=== PATIENT | male | born 1980 | race Caucasian/White ===

== ENCOUNTER 2016-11-10 23:01 | Emergency (ER) | payer OTHER ==
[~2016-11-10] VITALS: Ht 177.8 cm; Wt 72.0 kg
[~2016-11-10 23:01] MED LIST: AMPH10CA3 PO; AMPH30CA3 PO; CIPR-255 PO; PROP10TA7 PO
[2016-11-10 23:05] VITALS: TEMP 36.6; Ht 177.8 cm; Wt 72.0 kg
[2016-11-10 23:41] VITALS: O2SAT 98
[2016-11-11 00:13] LABS: BASO % 0.1 %; BASO ABS # 0.01 K/uL (0-0.2); COMPLETE YES; EOS % 1.3 %; HEMATOCRIT 44.6 % (42-52); IG% 0.1 %; LYMPH % 28.9 %; LYMPH ABS # 2.08 K/uL (1.2-3.4); MEAN CELL VOLUME 83.7 fL (80-100); MEAN CORPUSCULAR HEMOGLOBIN 29.5 pg (25-34); MEAN CORPUSCULAR HGB CONC 35.2 g/dl (32-36); MEAN PLATELET VOLUME 9.7 fL (7.4-10.4); MONO % 5.7 %; NEUT % 63.9 %; PLATELET COUNT 352 K/uL (130-400); RED BLOOD COUNT 5.33 M/uL (4.7-6.1)
[2016-11-11 00:29] LABS: PARTIAL THROMBOPLASTIN RATIO 1.1; PROTHROMBIN TIME (PATIENT) 10.4 SECONDS (9.0-12.0)
[2016-11-11 00:31] LABS: ALT/SGPT 29 U/L (12-78); AST/SGOT 13 U/L (15-37); BLOOD UREA NITROGEN 10 mg/dl (7-18); BUN/CREATININE RATIO 10.3 (10-20); CALCIUM 9.4 mg/dl (8.5-10.1); CARBON DIOXIDE 31 mmol/L (21-32); CHLORIDE 102 mmol/L (98-107); CREATININE 0.94 mg/dl (0.60-1.40); GLUCOSE 127 mg/dl (70-99); POTASSIUM 3.7 mmol/L (3.5-5.1); SODIUM 140 mmol/L (136-145)
[2016-11-11 00:35] LABS: ALKALINE PHOSPHATASE 130 U/L (45-117)
[2016-11-11] MEDS ORDERED: OPTIRAY 320 IV PRN (01:15)
[2016-11-11 02:29] VITALS: BP 106/62; PULSE 72; O2SAT 99
--- NOTE | 2016-11-11 02:32 | EMERGENCY ROOM VISIT NOTE ---
History First contact with patient: 23:11 Chief Complaint: SHORTNESS OF BREATH Stated Complaint: FATIGUE,SOB,CHILLS AFTER SURGERY Nursing Triage Summary: c/o sob since this am denies pain states " i have chills." History of Present Illness The patient is a 35 year old male who presents to the Emergency Room with complaints of chills and feeling short of breath for the past day with feeling fatigued. Patient had facial reconstructive surgery on October 30 in [place] for prior facial fractures when he was a child. He also had orbital reconstruction as he had diplopia. Patient has 3 implants on the right side of his face and 2 on the left. Patient states he had his follow-up appointment last with Dr. Oro and things are going well. He was placed on a eye ointment and has been on Keflex since the surgery. He states his vision is improving. Patient complains of some discomfort behind his right orbit. Patient does use tobacco products. Patient does suffer from anxiety with possible bipolar and ADHD. Patient has been taking his hydrocodone for his pain as scheduled. Patient states he came in now as he felt more fatigued and short of breath. Patient denies coughing, chest pain, documented fever, sore throat, loss of vision, hearing problems, sore throat, dysphagia, abdominal pain , vomiting, diarrhea, urinary symptoms. Patient states he was feeling well until today. No history DVT or PE. His next follow-up appointment is in November. Review of Systems See HPI for pertinent positives & negatives. A total of 10 systems reviewed and were otherwise negative. Past Medical/Surgical History Medical Problems: (1) ADHD (attention deficit hyperactivity disorder) Social History Smoking Status: Current Every Day Smoker Drug Use: none Occupation Status: [employer] student Current/Historical Medications Scheduled Amphetamine-Dextroamphetamine 10MG (Adderall Xr 10MG), 10 MG PO QPM Amphetamine-Dextroamphetamine 30MG (Adderall Xr 30MG), 30 MG PO QAM Scheduled PRN Propranolol (Inderal), 10 MG PO DAILY PRN for TREMORS Physical Exam Vital Signs Date Time Temp Pulse Resp B/P (MAP) Pulse Ox O2 Delivery O2 Flow Rate FiO2 11/11/16 01:32 85 18 111/78 96 Room Air 11/11/16 00:57 78 18 118/70 99 Room Air 11/10/16 23:42 93 11/10/16 23:42 106 18 117/88 98 Room Air 11/10/16 23:41 98 Room Air 11/10/16 23:05 36.6 87 18 110/74 97 Room Air Physical Exam VITALS: Vitals are noted on the nurse's note and reviewed by myself. Vital signs stable. GENERAL: Pleasant male anxious-appearing, in no acute distress, nondiaphoretic, well-developed well-nourished. SKIN: The skin was without rashes, erythema, edema, or bruising. There is no tenting of the skin. Capillary reflex less than 2 seconds. HEAD: Normocephalic atraumatic. Face: Minimal tender to palpation and bilateral orbits improving per patient. EARS: External auditory canals clear, tympanic membranes pearly ochoa without erythema or effusion bilaterally. EYES: Pupils equal round and reactive to light and accommodation. Bilateral chemosis present improving per patient Conjunctivae without injection, sclerae without icterus. Extraocular movements intact. NOSE: Patent, turbinates without inflammation or discharge. No sinus tenderness. MOUTH: Mucous membranes moist. Upper buccal mucosa suture lines intact without signs of infection Pharynx without erythema or exudate. Uvula midline. Airway patent. Tongue does not deviate. NECK: Supple without nuchal rigidity. No lymphadenopathy. No thyromegaly. Cervical spine is nontender. No JVD. No meningeal signs HEART: Regular rate and rhythm without murmurs gallops or rubs. LUNGS: Clear to auscultation bilaterally without wheezes, rales or rhonchi. No dullness to percussion. No retractions or accessory muscle use. ABDOMEN: Positive bowel sounds x 4. Normal tympanic percussion. Soft, nontender, without masses or organomegaly. Malone sign negative. No guarding or rebound tenderness. MUSCULOSKELETAL: No muscle atrophy, erythema, or edema noted. NEURO: Patient was alert and oriented to person place and time. Normal sensation to light and sharp touch. No focal neurological deficits. Medical Decision & Procedures Laboratory Results 11/10/16 23:40 Red Blood Count 5.33, Mean Corpuscular Volume 83.7, Mean Corpuscular Hemoglobin 29.5, Mean Corpuscular Hemoglobin Concent 35.2, Mean Platelet Volume 9.7, Neutrophils (%) (Auto) 63.9, Lymphocytes (%) (Auto) 28.9, Monocytes (%) (Auto) 5.7, Eosinophils (%) (Auto) 1.3, Basophils (%) (Auto) 0.1, Neutrophils # (Auto) 4.60, Lymphocytes # (Auto) 2.08, Monocytes # (Auto) 0.41, Eosinophils # (Auto) 0.09, Basophils # (Auto) 0.01 11/10/16 23:40 Test 11/10/16 23:40 11/10/16 23:55 White Blood Count 7.20 K/uL (4.8-10.8) Red Blood Count 5.33 M/uL (4.7-6.1) Hemoglobin 15.7 g/dL (14.0-18.0) Hematocrit 44.6 % (42-52) Mean Corpuscular Volume 83.7 fL (80-100) Mean Corpuscular Hemoglobin 29.5 pg (25-34) Mean Corpuscular Hemoglobin Concent 35.2 g/dl (32-36) Platelet Count 352 K/uL (130-400) Mean Platelet Volume 9.7 fL (7.4-10.4) Neutrophils (%) (Auto) 63.9 % Lymphocytes (%) (Auto) 28.9 % Monocytes (%) (Auto) 5.7 % Eosinophils (%) (Auto) 1.3 % Basophils (%) (Auto) 0.1 % Neutrophils # (Auto) 4.60 K/uL (1.4-6.5) Lymphocytes # (Auto) 2.08 K/uL (1.2-3.4) Monocytes # (Auto) 0.41 K/uL (0.11-0.59) Eosinophils # (Auto) 0.09 K/uL (0-0.5) Basophils # (Auto) 0.01 K/uL (0-0.2) RDW Standard Deviation 38.2 fL (36.4-46.3) RDW Coefficient of Variation 12.7 % (11.5-14.5) Immature Granulocyte % (Auto) 0.1 % Immature Granulocyte # (Auto) 0.01 K/uL (0.00-0.02) Prothrombin Time 10.4 SECONDS (9.0-12.0) Prothromb Time International Ratio 1.0 (0.9-1.1) Activated Partial Thromboplast Time 27.3 SECONDS (21.0-31.0) Partial Thromboplastin Ratio 1.1 D-Dimer 500 ug/L FEU (0-500) Anion Gap 7.0 mmol/L (3-11) Est Creatinine Clear Calc Drug Dose 113.8 ml/min Estimated GFR () 123.0 Estimated GFR (Non- 106.1 BUN/Creatinine Ratio 10.3 (10-20) Calcium Level 9.4 mg/dl (8.5-10.1) Total Bilirubin 0.6 mg/dl (0.2-1) Aspartate Amino Transf (AST/SGOT) 13 U/L (15-37) Alanine Aminotransferase (ALT/SGPT) 29 U/L (12-78) Alkaline Phosphatase 130 U/L (45-117) Troponin I < 0.015 ng/ml (0-0.045) Total Protein 8.1 gm/dl (6.4-8.2) Albumin 4.0 gm/dl (3.4-5.0) Globulin 4.1 gm/dl (2.5-4.0) Albumin/Globulin Ratio 1.0 (0.9-2) Bedside Lactic Acid Venous 0.93 mmol/L (0.90-1.70) ED Course Prior records/ancillary studies reviewed. Triage Nursing notes reviewed. The patient's history was concerning for respiratory difficulties with recent surgery. Differential diagnosis: Etiologies such as postsurgical complication, anxiety, infections, reactive airway disease, pneumonia, pneumothorax, COPD, CHF, cardiac ischemia, pulmonary embolism, musculoskeletal, gastrointestinal, as well as others were entertained. Physical examination: As above. ER treatment provided: Patient was observed On reassessment the patient felt better. Diagnostic interpretation by me: The electrocardiogram was normal sinus, normal intervals, rate of 109, no acute ST-T wave changes. Impression sinus tachycardia interpreted by myself. The labs revealed negative lactic acid d-dimer. Stable H&H. No leukocytosis Imaging studies: Chest x-ray with no acute consolidation, pneumothorax or free air per my interpretation. CT FACIAL: No prior exams. Mottled low attenuation surgical material vs. collections in the bilateral malar region. Correlate with surgical history. Collection of air on the left side surrounding the above mentioned material. Much smaller foci of air on the contralateral side. Infection should be considered. Mottled collections of air and fluid near the mandibular regions. Correlate for abscesses. Soft tissue swelling, inflammation and infiltration in the face. Fixation hardware related to the orbits and the maxilla. Sinus mucosal thickening/debris. Soft tissue thickening in the orbits, greater on the right side. Facial fractures. Cervical nodes. Radiologist: Lauren Desai M.D. Consultation: A consultation was placed with the ENT crop pest control specialist at [facility], Dr Neumann. The case was discussed and diagnostics were reviewed. He states this does not appear to be any type of serious complication. He states he will not be able to review the CT results as he will not come into the hospital to review them. He recommends the patient call the clinic in the morning for follow up with his surgeon. The transfer center did call back and states that they will report the ENT doctor for being inappropriate on the phone for yelling and being condescending. He was extremely upset that it did wake him up in the middle night to review the CT results. He made it clear that he would not come in to review the results. He also stated that he cannot see the patient and by review of the testing it does not sound like it is anything emergent in which I should have called him for in the middle of the night. My attending was made aware this. This appears to be consistent with postsurgical pain without clear indication of abscess. Patient was advised to call the clinic in the morning for follow- up within next 48 hours. Patient was neurovascularly and neurologically intact. He is well-appearing. Negative d-dimer. I feel like it is less likely the patient has a PE. Negative troponin. No acute findings and EKG. patient had stable vital signs. He was advised to return to the ER me for chest pain, difficulty breathing, fevers, vision problems, worsening signs or symptoms or as needed. By the evaluation outlined above emergent etiologies such as CHF, cardiac ischemia, pulmonary embolism, reactive airway disease, pneumonia, pneumothorax, musculoskeletal, serious bacterial infections, as well as others were deemed relatively unlikely. The pt informed about the findings as listed above. All questions were answered and pleased with the treatment. Return instructions were outlined and the patient was discharged in stable condition. Referral: The patient was referred back to their ENT for follow-up in 2 to 3 days for a recheck of the current condition. Case reviewed with my attending. Medical Decision As above Medication Reconcilliation Current Medication List: was personally reviewed by me Blood Pressure Screening Patient's blood pressure: Normal blood pressure Impression Primary Impression: Postoperative pain Additional Impressions: Facial pain Dyspnea Departure Information Dispostion Home / Self-Care Condition GOOD Referrals No Doctor, Assigned (PCP) Patient Instructions My [facility] Additional Instructions Ibuprofen(Motrin, Advil) may be used for fever or pain. Use 600mg every six hours as needed. Take with food. Avoid using more than 2400mg in a 24 hour period. Do not use 2400mg per day for more than three consecutive days without physician direction. Prolonged inappropriate use can lead to stomach upset or ulcers. (AND/OR) Acetaminophen(Tylenol) may be used for fever or pain. Use 1000mg every six hours as needed. Avoid using more than 3000mg in a 24 hour period. Rest and drink plenty of fluids as tolerated. Continue current medications. Return to the ER immediately for worsening or persistent facial pain, vision problems, abdominal pain, vomiting, fevers, chest pains, difficulty breathing, worsening of your condition, or as needed. Follow up with your ENT in 2-3 days, call today for a follow-up appointment for a recheck of your current condition. Problem Qualifiers
--- NOTE | 2016-11-11 07:11 | DIAGNOSTIC IMAGING REPORT ---
SINGLE VIEW CHEST CLINICAL HISTORY: Dyspnea. Chills. FINDINGS: An AP, portable, upright chest radiograph is obtained. No prior studies are available for comparison at the time of dictation. The examination is degraded by portable technique and patient rotation. The cardiomediastinal silhouette is unremarkable. The lungs and pleural spaces are clear. No pneumothorax is seen. The bony thorax is grossly intact. IMPRESSION: No active disease in the chest. Electronically signed by: Chi Casey M.D. 11/11/2016 7:10 AM Dictated Date/Time: 11/11/2016 7:09 AM
--- NOTE | 2016-11-11 07:25 | DIAGNOSTIC IMAGING REPORT ---
FACIAL-MAXILLOFACIAL WITH CLINICAL HISTORY: 35 years-old Male presenting with right orbtail pain, recent facial reconstrucitve OR. TECHNIQUE: Multidetector CT of the face was performed after the administration of intravenous contrast. IV contrast: 119 mL of Optiray 320. A dose lowering technique was used consistent with the principles of ALARA (as low as reasonably achievable). COMPARISON: None. CT DOSE (mGy.cm): The estimated cumulative dose is 664.28 mGy.cm. FINDINGS: Stitching Machine Setter topogram: Unremarkable. Postsurgical changes of screw fixation of the bilateral inferior and lateral rims of the orbits. None of the screws appear flush with the cortex, which may possibly indicate loosening or suboptimal positioning. Mesh along the right orbital floor in place. Additional surgical material more inferiorly along the maxilla bilaterally, including 2 anterior screws that have completely or near completely backed out of the maxilla. Extensive fluid and gas along the premaxillary regions with peripheral rim enhancement. The degree of gas and fluid is unexpected in the postsurgical setting. The collections do not appear to extend into the orbits. However, preseptal periorbital edema is noted. Mucosal thickening of the right maxillary sinus. Otherwise the paranasal sinuses and mastoid air cells are clear. Postsurgical change of right maxillary antrostomy. No lymphadenopathy. Few prominent jugulodigastric lymph nodes within the range of normal and bilaterally symmetric. Limited intracranial evaluation demonstrates grossly normal brain parenchyma. No extra-axial collection. Grossly patent anterior and posterior circulations. Upper cervical spine normal. IMPRESSION: Extensive gas and fluid containing premaxillary collections associated with postsurgical changes of right orbital floor and bilateral maxillary fixation. These collections are greater than what is expected in the postsurgical setting and are concerning for abscesses. Further concern for infection is raised by the apparent malpositioning of several fixation screws as detailed above. Electronically signed by: Morgan Montiel M.D. 11/11/2016 7:24 AM Dictated Date/Time: 11/11/2016 7:12 AM
== END 2016-11-11 02:43 | disposition home or self-care (01) ==
LOC: C.EDB 23:02
DX: G89.18 Other acute postprocedural pain (principal); R51 Headache; R06.00 Dyspnea, unspecified; F90.9 Attention-deficit hyperactivity disorder, unspecified type; F17.210 Nicotine dependence, cigarettes, uncomplicated; Z79.899 Other long term (current) drug therapy